=== PATIENT | female | born 1985 | race Caucasian/White ===

== ENCOUNTER → 2020-09-16 | Outpatient (CLI) | payer OTHER ==
--- NOTE | 2020-09-16 09:47 | KCIC ---
EXAM: Brain MRI without contrast. HISTORY: Left-sided numbness. Fatigue. Memory loss. TECHNIQUE: Multiplanar, multisequence magnetic resonance imaging of the brain was performed without contrast. COMPARISON: None. FINDINGS: There is no restricted diffusion to suggest acute or subacute infarction. There is no susceptibility effect to suggest hemorrhage. There is no mass effect or midline shift. There is no hydrocephalus. There are few tiny foci of signal change within the cerebral white matter, a nonspecific finding. The orbits are unremarkable. There is paranasal sinus because of thickening and there are maxillary sinus mucous retention cysts. The mastoid air cells are clear. There are normal flow voids within the cerebral vessels. There is no suspicious calvarial lesion. IMPRESSION: 1. No acute intracranial finding. 2. Few tiny foci of signal change within the cerebral white matter. The differential includes changes due to chronic small vessel disease. However, this is not typical in a patient of this age. The possibility of foci of signal change due to chronic demyelination or chronic migraine headaches can be considered in the appropriate clinical setting. Electronically signed by: Jania Carmona MD (09/16/2020 9:44 AM) [id number]
== END ==
LOC: KCIC MRI 08:29
PROVIDERS: ATTEND Nurse Practitioner Family
DX: J34.1 Cyst and mucocele of nose and nasal sinus (principal); G62.9 Polyneuropathy, unspecified; R20.2 Paresthesia of skin; R20.0 Anesthesia of skin; R53.83 Other fatigue; R41.3 Other amnesia; I73.9 Peripheral vascular disease, unspecified
CPT/HCPCS: 70551

== ENCOUNTER → 2021-12-03 | Outpatient (CLI) | payer OTHER ==
--- NOTE | 2021-12-03 12:24 | RAD ---
EXAM: Chest, 2 views. HISTORY: Pain. COMPARISON: None. FINDINGS: 2 views of the chest are obtained. There is no infiltrate, pleural effusion or pneumothorax . The heart is normal in size. IMPRESSION: No acute pulmonary finding. Electronically signed by: Jania Carmona MD (12/03/2021 12:22 PM) [id number]
== END ==
LOC: RAD 11:52
PROVIDERS: ATTEND Internal Medicine
DX: R07.89 Other chest pain (principal)
CPT/HCPCS: 71046